=== PATIENT | female | born 1960 | race African-American/Black ===

== ENCOUNTER 2016-08-05 12:34 | Inpatient (IN) | payer OTHER ==
[~2016-08-05] VITALS: Ht 170.2 cm; Wt 63.5 kg
--- NOTE | 2016-08-05 12:34 | NUR ---
PATIENT PRESENTS TO ED WITH SYNCOPAL EPISODE . PT STATES SHE WAS TALKING TO A NEIGHBOR AFTER A MORNING WALK AND PASSED OUT ON A CHAIR . DENIES N/V/D; SKIN IS PINK/WARM/DRY; AAOX4 WITH EVEN AND AMBULATES WITH A CANE; LUNGS CLEAR BL; HR EVEN AND REGULAR; PT DENIES ANY FEVER, CP, SOB, OR COUGH AT THIS TIME; PATIENT STATES PAIN OF 0/10 AT THIS TIME; VSS; PATIENT POSITIONED FOR COMFORT; HOB ELEVATED; BEDRAILS UP X2; BED DOWN. ER MD MADE AWARE OF PT STATUS.
[2016-08-05] MEDS ORDERED: NACL 0.9% 1,000 ML IV ONE (12:40)
[2016-08-05 12:43] VITALS: BP 108/73
--- NOTE | 2016-08-05 12:44 | NUR ---
LAB AT BEDSIDE COLLECTING SAMPLE
[2016-08-05 13:10] LABS: HEMOGLOBIN 11.7 g/dL (12.0-16.0); MEAN CORPUSCULAR HEMOGLOBIN 33 pg (27-31); MEAN CORPUSCULAR HGB CONC 33 g/dL (33-37); MEAN CORPUSCULAR VOLUME 100 fL (80-94); PLATELET COUNT (AUTO) 275 K/uL (140-450); RED CELL DISTRIBUTION WIDTH 15.9 % (11.6-13.7); WHITE BLOOD COUNT (AUTO) 8.3 K/uL (4.8-10.8)
--- NOTE | 2016-08-05 13:10 | NUR ---
PT TRANSFERRED TO CT ON [facility]
[2016-08-05 13:17] LABS: ALBUMIN 3.4 g/dL (3.4-5.0); ANION GAP 15.7 (8-16); CALCIUM 9.7 mg/dL (8.5-10.1); CARBON DIOXIDE 25.2 mmol/L (21-32); TOTAL BILIRUBIN 0.3 mg/dL (0.0-1.0); TOTAL PROTEIN, SERUM 7.2 g/dL (6.4-8.2)
[2016-08-05 13:21] LABS: INR 1.1 (0.8-1.2); PARTIAL THROMBOPLASTIN TIME 20.8 secs (22-35.6); PROTHROMBIN TIME 10.3 secs (10.8-13.4)
[2016-08-05 13:23] LABS: POTASSIUM 2.9 mmol/L (3.5-5.1)
[2016-08-05 13:28] LABS: EOSINOPHILS % (MANUAL) 2 % (0-4); LYMPHOCYTES % (MANUAL) 37 % (20-46); MONOCYTES % (MANUAL) 7 % (5-12); NEUTROPHILS % (MANUAL) 54 (43-65)
--- NOTE | 2016-08-05 13:28 | NUR ---
RETURNED FROM CT VIA IVETTE, A/O X4
[2016-08-05] MEDS ORDERED: POTASSIUM CHLORIDE 10 MEQ TABER PO ONE (13:35)
[2016-08-05] MEDS ORDERED: GABA300C PO (13:48)
--- NOTE | 2016-08-05 13:48 | NUR ---
SPOKE WITH PT ABOUT BEING ADMITTED FOR OBSERVATION. PT CHANGED HER MIND AND WOULD LIKE TO GO HOME. DR. PARTIDA NOTIFIED
[2016-08-05] MEDS ORDERED: ASPIRIN 325 MG TAB PO ONE (14:15)
[2016-08-05 14:28] LABS: APPEARANCE,URINE CLEAR (CLEAR); BILIRUBIN,URINE NEGATIVE (NEGATIVE); BLOOD, URINE NEGATIVE (NEGATIVE); COLOR,URINE YELLOW (YELLOW); LEUKOCYTE ESTERASE ,URINE NEGATIVE (NEGATIVE); NITRITE, URINE NEGATIVE (NEGATIVE); PROTEIN,URINE NEGATIVE (NEGATIVE); UGLUCOSE NEGATIVE (NEGATIVE); UROBILINOGEN,URINE 0.2 EU/dL (0.2 - 1)
--- NOTE | 2016-08-05 14:29 | NUR ---
NO SEIZURE ACTIVITY NOTED, REMAINS A/O X4 WITH FULL CLEAR SPEECH. CONTINUES TO DENIE AQUINO, NO N/V, NO DIZZINESS
[2016-08-05] MEDS ORDERED: ONDANSETRON 4 MG/2 ML VIAL IVP PRN (14:30)
[2016-08-05] MEDS ORDERED: MORPHINE SULFATE 4 MG/ML SYR IVP PRN (14:30)
[2016-08-05] MEDS ORDERED: HYDROcodone/APAP 5/325 MG 1 TAB TAB PO PRN (14:30)
[2016-08-05 14:38] LABS: BACTERIA,URINE FEW /HPF (None Seen); MUCUS,URINE 1+ /LPF (None Seen); RBC,URINE 0-3 /HPF (0-5); WBC,URINE 0-3 /HPF (0-5)
[2016-08-05 14:44] LABS: AMPHETAMINE, URINE NEG. ng/ml (NEG <=1000); BARBITURATE, URINE NEG. ng/ml (NEG <=200); BENZODIAZEPINE, URINE NEG. ng/mL (NEG <=200); CANNABINOID, URINE NEG. ng/mL (NEG <=50); COCAINE, URINE NEG. ng/mL (NEG <=300); OPIATE, URINE NEG. ng/mL (NEG <=2000); PHENCYCLIDINE SCREEN,URINE NEG. ng/mL (NEG <=25)
--- NOTE | 2016-08-05 15:44 | NUR ---
Patient will be admitted to care of DR BRUNNER. Admited to TELE. Will go to room 123B. Belongings list completed. Report to JU HILTON.
--- NOTE | 2016-08-05 16:00 | NUR ---
PT CAME TO UNIT WITH 3 ER NURSES. PT IS ALERT AWAKE AND ORIENTED. PT WENT TO BATHROOM WITH CANE, TOLERATED WELL. PT HAS L AC 20 G SL FOR NOW, WILL HANG IVF ORDERED. VS WNL. CALL LIGHT WITHIN REACH. PT DENIES PAIN OR DIZZINESS AT THIS TIME. SKIN INTACT. PROVIDED WATER. WILL CONTINUE TO MONITOR.
[2016-08-05] MEDS: NACL 0.9% 1,000 ML IV SCH (16:30)
[2016-08-05 16:52] VITALS: BP 97/65
[2016-08-05] MEDS ORDERED: GABAPENTIN 300 MG CAP PO SCH (17:00)
--- NOTE | 2016-08-05 17:50 | NUR ---
PT SAT UP IN BED FOR DINNER. TOLERATED WELL. NO COMPLAINTS. CALL LIGHT WITHIN REACH. WILL CONTINUE TO MONITOR.
--- NOTE | 2016-08-05 19:23 | NUR ---
ENDORSED CARE OF PT TO CHIEF OF HARBOR PATROL NURSE. PT IN STABLE CONDITION.
--- NOTE | 2016-08-05 19:30 | NUR ---
RECEIVED REPORT FROM ABDULAZIZ HILTON AT BEDSIDE. PT IS ALERT AWAKE ORIENTED X4. INITIAL ASSESSMENT DONE. NO S/S OF RESPIRATORY DISTRESS OR SOB NOTED. NO C/O PAIN OR ANY DISCOMFORT AT THIS TIME. PLAN OF CARE REVIEWED TO PT AND FAMILY AT BEDSIDE AND VERBALIZED UNDERSTANDING. CALL LIGHT WITHIN REACH. WILL CONTINUE TO MONITOR.
[2016-08-05 20:00] VITALS: BP 107/77
[2016-08-05] MEDS: GABAPENTIN 300 MG CAP PO SCH (20:20)
[2016-08-05] MEDS: LORazepam 2 MG/ML VIAL IVP PRN (21:04)
[2016-08-06] VITALS: BP 105/73
--- NOTE | 2016-08-06 00:10 | NUR ---
PT IS SLEEPING RIGHT NOW BUT EASILY AROUSABLE. NO S/S OF ANY DISCOMFORT AT THIS TIME. ALL NEEDS ARE ATTENDED. CALL LIGHT WITHIN REACH. WILL CONTINUE TO MONITOR.
[2016-08-06] MEDS: NACL 0.9% 1,000 ML IV SCH (00:23)
[2016-08-06] MEDS: LORazepam 2 MG/ML VIAL IVP PRN (02:40)
[2016-08-06 04:00] VITALS: BP 102/71
--- NOTE | 2016-08-06 05:30 | NUR ---
AM CARE RENDERED. BED LINEN CHANGED. INSTRUCTED PT TO REPOSITION. KEPT CLEAN AND DRY. CALL LIGHT WITHIN REACH. WILL CONTINUE TO MONITOR.
[2016-08-06 05:38] LABS: BASOPHILS # (AUTO) 0.3 K/uL (0.00-0.22); BASOPHILS % (AUTO) 4.3 % (0.0-2.0); EOSINOPHILS # (AUTO) 0.3 K/uL (0-0.4); EOSINOPHILS % (AUTO) 5.3 % (0.0-4.0); HEMATOCRIT 29.8 % (36-48); HEMOGLOBIN 9.6 g/dL (12.0-16.0); LYMPHOCYTES # (AUTO) 2.3 K/uL (2.5-16.5); LYMPHOCYTES % (AUTO) 36.8 % (20.5-51.1); MEAN CORPUSCULAR HEMOGLOBIN 32 pg (27-31); MEAN CORPUSCULAR HGB CONC 32 g/dL (33-37); MEAN CORPUSCULAR VOLUME 99 fL (80-94); MONOCYTES # (AUTO) 0.2 K/uL (0.8-1.0); MONOCYTES % (AUTO) 3.8 % (1.7-9.3); NEUTROPHILS # (AUTO) 3.2 K/uL (1.8-7.7); NEUTROPHILS % (AUTO) 49.8 % (42.2-75.2); PLATELET COUNT (AUTO) 210 K/uL (140-450); RED BLOOD CELL COUNT(AUTO) 3.01 MIL/uL (4.20-5.40); RED CELL DISTRIBUTION WIDTH 15.4 % (11.6-13.7); WHITE BLOOD COUNT (AUTO) 6.3 K/uL (4.8-10.8)
[2016-08-06 06:15] LABS: CALCIUM 8.2 mg/dL (8.5-10.1); CARBON DIOXIDE 23.9 mmol/L (21-32); CREATININE 0.8 mg/dL (0.6-1.3); POTASSIUM 3.9 mmol/L (3.5-5.1)
[2016-08-06 06:18] LABS: MAGNESIUM 1.1 mg/dL (1.8-2.4)
--- NOTE | 2016-08-06 07:22 | NUR ---
PT HAS NO S/S OF ANY DISCOMFORT. PLAN OF CARE ENDORSED TO ROCKY RN AT BEDSIDE FOR CONTINUITY OF CARE.
--- NOTE | 2016-08-06 07:23 | NUR ---
PT ALERT AND ORIENTED X4, BREATHING EVENLY AND UNLABORED, NO SIGNS OF ACUTE DISTRESS. SKIN IS WARM AND DRY. NO SIGNS OF ANY BOWEL/BLADDER DISCOMFORT. DENIES OF ANY PAIN OR DISCOMFORT. ALL NEEDS ATTENDED, SAFETY PRECAUTIONS MAINTAINED. CALL LIGHT WITHIN REACH.
[2016-08-06 08:00] VITALS: BP 124/84
--- NOTE | 2016-08-06 08:53 | NUR ---
PATIENT HAS BEEN SCREENED AND CATEGORIZED MODERATE NUTRITION RISK. PATIENT WILL BE SEEN WITHIN 3-5 DAYS OF ADMISSION. 08/08/16-08/10/[address]
--- NOTE | 2016-08-06 08:58 | NUR ---
FAXED INITIAL REVIEW TO [facility] [phone] PHONE DONNA [phone]
[2016-08-06] MEDS ORDERED: ENOXAPARIN 40 MG/0.4 ML SYR SUBQ SCH (09:00)
[2016-08-06] MEDS ORDERED: amLODIPine 5 MG TAB PO SCH (09:00)
[2016-08-06] MEDS: GABAPENTIN 300 MG CAP PO SCH (09:10)
--- NOTE | 2016-08-06 09:48 | NUR ---
NEW ORDERS RECEIVED FROM DR. BRUNNER, NOTED AND CARRIED OUT.
[2016-08-06] MEDS ORDERED: MAG SULF 2000 MG/WATER PREMIX 50 ML IV SCH (10:00)
--- NOTE | 2016-08-06 11:45 | NUR ---
PT REQUESTED TO SIGN AMA, RISKS AND BENEFITS EXPLAINED, CHARGE NURSE AND LINUX ADMINISTRATOR AWARE. DR. BRUNNER AWARE.
--- NOTE | 2016-08-06 11:57 | NUR ---
IV LINE AND TELE LEADS REMOVED. WRIST BANDS ALSO REMOVED.
[2016-08-06 12:00] VITALS: BP 105/80
--- NOTE | 2016-08-06 12:05 | NUR ---
PT WENT OFF UNIT AND SIGNED AMA. PERSONAL BELONGINGS WITH PT UPON LEAVING UNIT.
== END 2016-08-06 12:05 | disposition left against medical advice (07) | DRG 52 ==
LOC: MED 12:34 → MTU 14:29
PROVIDERS: ADMIT Internal Medicine Pulmonary Disease; ATTEND Internal Medicine Pulmonary Disease
DX: G93.41 Metabolic encephalopathy (principal); I95.9 Hypotension, unspecified; R56.9 Unspecified convulsions; E87.6 Hypokalemia; G62.9 Polyneuropathy, unspecified; I10 Essential (primary) hypertension; R32 Unspecified urinary incontinence; Z53.21 Procedure and treatment not carried out due to patient leaving prior to being seen by health care provider; F17.210 Nicotine dependence, cigarettes, uncomplicated; Z90.710 Acquired absence of both cervix and uterus; Z90.49 Acquired absence of other specified parts of digestive tract; Z86.73 Personal history of transient ischemic attack (TIA), and cerebral infarction without residual deficits
CPT/HCPCS: 36415; 70450; 71010; 80048; 80053; 80305; 81001; 83735; 84100; 84484; 85025; 85610; 85730; 87081; 93005; 95816; 96360; 96361; 99285; J1650; J2060; J3475; J7030

== ENCOUNTER 2017-03-16 20:05 | Emergency (ER) | payer OTHER ==
[~2017-03-16] VITALS: Ht 170.2 cm; Wt 68.0 kg
[~2017-03-16 20:05] MED LIST: GABA300C PO
[2017-03-16 20:15] VITALS: BP 125/71
[2017-03-16 20:18] VITALS: BP 125/71
--- NOTE | 2017-03-16 20:18 | NUR ---
TO LOBBY.VIA W/C, A/W BED, LASHAWN DELEON NOTED
--- NOTE | 2017-03-16 22:10 | NUR ---
PT TAKEN TO OF
--- NOTE | 2017-03-16 22:14 | NUR ---
PATIENT PRESENTS TO ED WITH LEFT LEG, ANKLE , FOOT PAIN AND SWELLING FOR 2 WEEKS , NO TRAUMA NOR INJURY PT DENIES N/V/D; SKIN IS PINK/WARM/DRY; AAOX4 WITH EVEN AND STEADY GAIT; LUNGS CLEAR BL; HR EVEN AND REGULAR; PT DENIES ANY FEVER, CP, SOB, OR COUGH AT THIS TIME; PATIENT STATES PAIN OF 7/10 AT THIS TIME; VSS; PATIENT POSITIONED FOR COMFORT; HOB ELEVATED; BEDRAILS UP X2; BED DOWN. ER MD MADE AWARE OF PT STATUS.
--- NOTE | 2017-03-16 23:35 | NUR ---
PT HAS STICHES ON THE BACK OF LEFT LEG THAT NEED TO BE REMOVED.
--- NOTE | 2017-03-16 23:42 | NUR ---
PT MOVED OT BED 2
--- NOTE | 2017-03-16 23:57 | NUR ---
PT MOVED BACK TO OF
--- NOTE | 2017-03-17 00:09 | NUR ---
Patient discharged with v/s stable. Written and verbal after care instructions given and explained. Patient verbalized understanding. Ambulatory with steady gait. All questions addressed prior to discharge. Advised to follow up with PMD. DISCHARGED BY DR SIERRA
== END 2017-03-17 00:09 | disposition home or self-care (01) ==
LOC: MED 20:05
DX: M79.662 Pain in left lower leg (principal); I10 Essential (primary) hypertension
CPT/HCPCS: 99283

== ENCOUNTER 2017-12-05 06:51 | Day surgery (SDC) | payer OTHER ==
[~2017-12-05] VITALS: Ht 170.2 cm; Wt 74.8 kg
[2017-12-05] MEDS ORDERED: MIDAZOLAM 2 MG/2 ML VIAL ONE ×2 (08:54)
[2017-12-05] MEDS ORDERED: fentaNYL 0.05 MG/ML VIAL ONE (08:54)
[2017-12-05] MEDS ORDERED: MIDAZOLAM 2 MG/2 ML VIAL IVP ONE (09:15)
== END 2017-12-05 10:10 | disposition home or self-care (01) ==
LOC: MDS 06:51 → MMU 06:52 → MDS 10:10
PROVIDERS: ATTEND Internal Medicine Gastroenterology
DX: K22.8 Other specified diseases of esophagus (principal); K31.89 Other diseases of stomach and duodenum; K44.9 Diaphragmatic hernia without obstruction or gangrene; I10 Essential (primary) hypertension; F17.210 Nicotine dependence, cigarettes, uncomplicated; E66.9 Obesity, unspecified; Z68.25 Body mass index [BMI] 25.0-25.9, adult; Z79.82 Long term (current) use of aspirin; Z79.899 Other long term (current) drug therapy; Z90.49 Acquired absence of other specified parts of digestive tract; Z90.710 Acquired absence of both cervix and uterus
CPT/HCPCS: 36415; 43239; 86677; 88305; 88313; J2250; J3010

== ENCOUNTER 2018-04-25 09:13 | Inpatient (IN) | payer OTHER ==
[~2018-04-25] VITALS: Ht 170.2 cm; Wt 73.0 kg
--- NOTE | 2018-04-25 09:13 | NUR ---
PT BIBA BLS TO BED 9
--- NOTE | 2018-04-25 09:29 | NUR ---
Patient being evaluated by physician at bedside.
--- NOTE | 2018-04-25 09:29 | NUR ---
PATIENT PRESENTS TO ED WITH brought in by ems from home pt c/o awoke with severe lower back pain ; denies recent injury/trauma DENIES N/V/D; SKIN IS PINK/WARM/DRY; AAOX4 WITH EVEN AND STEADY GAIT; LUNGS CLEAR BL; HR EVEN AND REGULAR; PT DENIES ANY FEVER, CP, SOB, OR COUGH AT THIS TIME; PATIENT STATES PAIN OF 10/10 AT THIS TIME; VSS; PATIENT POSITIONED FOR COMFORT; HOB ELEVATED; BEDRAILS UP X2; BED DOWN. ER MD MADE AWARE OF PT STATUS.
[2018-04-25] MEDS ORDERED: KETOROLAC 60 MG/2 ML VIAL IM ONE (09:35)
[2018-04-25] MEDS ORDERED: ONDANSETRON 4 MG ODT PO ONE (10:30)
[2018-04-25] MEDS ORDERED: MORPHINE SULFATE 4 MG/ML SYR IM ONE (10:30)
--- NOTE | 2018-04-25 10:42 | NUR ---
pt c/o 10/07 lower back pain; medicated as written----encouraged pt to use call light and not to get out of [facility] without assistance. will continue to observe for pain control
[2018-04-25] MEDS ORDERED: MORPHINE SULFATE 4 MG/ML SYR IVP ONE (11:40)
--- NOTE | 2018-04-25 12:07 | NUR ---
ATTEMPTED TO START IV MULTIPLE TIMES WITH NO SUCCESS--PT OKAY FOR IM
[2018-04-25] MEDS ORDERED: ACETAMINOPHEN 325 MG TAB PO PRN (13:30)
[2018-04-25] MEDS ORDERED: LORazepam 2 MG/ML VIAL IVP PRN (13:30)
--- NOTE | 2018-04-25 13:39 | NUR ---
PT TO CT SCAN VIA [facility]
--- NOTE | 2018-04-25 14:18 | NUR ---
Pt transferred to Med/Surg via [facility] ROOM 112-B REPORT GIVEN TO ANTHONY HILTON
--- NOTE | 2018-04-25 15:08 | NUR ---
PT REPORT RECIEVED FROM RAÚL RN, PT IN ROOM 112B, SITTING IN BED IN NAD, RESP EVEN UNLABORED, SKIN WARM DRY COLOR WNL, PT STATES LOWER BACK PAIN 7/10, DENIES PAIN RADIATION, DENIES NUMBNESS AND TINGLING, BILAT LOWER EXT WITH EQUALLY STRONG, PT ORIENTED TO ROOM AND UNIT, CALL MCCONNELL WITHIN REACH, MRSA SWAB DONE, SKIN INSPECTED, INTACT, POC REVIEWED, MORPHINE GIVEN IN ER FOR PAIN AT 1200, NOT DUE UNTIL 1600, OFFERED NORCO BUT DECLINED, PT WISHES TO WAIT UNTIL 1600 FOR MORPHINE, VISITOR AT BEDSIDE, WILL CONTINUE TO MONITOR.
[2018-04-25 15:53] VITALS: BP 108/69
[2018-04-25] MEDS: MORPHINE SULFATE 2 MG/ML SYR IVP PRN ×2 (16:15→21:32)
--- NOTE | 2018-04-25 18:02 | NUR ---
PT C/O BACK PAIN AGAIN, MEDICATED WITH NORCO, WILL CONTINUE TO MONITOR.
[2018-04-25] MEDS: GABAPENTIN 300 MG CAP PO SCH (18:19)
[2018-04-25] MEDS: HYDROcodone/APAP 5/325 MG 1 TAB TAB PO PRN (18:19)
[2018-04-25] MEDS: ONDANSETRON 4 MG/2 ML VIAL IVP PRN (18:25)
--- NOTE | 2018-04-25 19:25 | NUR ---
REPORT GIVEN TO DRIVER GUARD NURSE. PT IN BED. PT STATED THAT PAIN IS GETTING BETTER. PATIENT STATED THE NAUSEA IS LESS AFTER RECEIVING ZOFRAN.
--- NOTE | 2018-04-25 19:26 | NUR ---
RECEIVED PT FROM OANH RN PT IS AAOX4 AMBULATORY HL ON LEFT FA PATENT, PT VERBALIZED TO HAVE HAD LOWER BACK PAIN BUT MEDIC HAS BEEN GIVEN .
[2018-04-25 20:00] VITALS: BP 118/66
--- NOTE | 2018-04-25 22:00 | NUR ---
AFTER PAIN MEDICATION GIVEN PT IS SLEEPING WELL NOT DISTRESS NOTED
[2018-04-26] VITALS: BP 107/68
--- NOTE | 2018-04-26 01:00 | NUR ---
PT VOIDING WELL USING BSC NOT DISTRESS NOTED
[2018-04-26] MEDS: HYDROcodone/APAP 5/325 MG 1 TAB TAB PO PRN ×2 (03:10→16:26)
--- NOTE | 2018-04-26 04:00 | NUR ---
SPONGE BATH GIVEN LINEN CHANGED; NOT DISTRESS NOTED
--- NOTE | 2018-04-26 07:04 | NUR ---
PT WILL BE ENDORSED TO DAYSHIFT NURSER FOR CONINUITY OF CARE
[2018-04-26 07:05] LABS: ANION GAP 21.7 (8-16); CARBON DIOXIDE 22.4 mmol/L (21-32); POTASSIUM 5.1 mmol/L (3.5-5.1)
--- NOTE | 2018-04-26 07:30 | NUR ---
RECEIVED PT IN BED AAOX4. NO SOB NOTED. NO C/O PAIN AT THIS TIME. IV TO RT HAND PATENT AND INTACT. CHEST, DIMINISHED AIR ENTRY TO THE BASES, OTHERWISE CLEAR. ABDOMEN SOFT, BOWEL SOUNDS PRESENT. INSTRUCTED PT TO CALL FOR ASSISTANCE, CALL LIGHT WITHIN REACH, PT VERBALIZED UNDERSTANDING.
[2018-04-26 07:31] LABS: BASOPHILS % (AUTO) 0.3 % (0.0-2.0); EOSINOPHILS % (AUTO) 0.4 % (0.0-4.0); HEMATOCRIT 34.9 % (36-48); HEMOGLOBIN 11.2 g/dL (12.0-16.0); LYMPHOCYTES # (AUTO) 0.4 K/uL (2.5-16.5); LYMPHOCYTES % (AUTO) 11.4 % (20.5-51.1); MEAN CORPUSCULAR HEMOGLOBIN 32 pg (27-31); MEAN CORPUSCULAR HGB CONC 32 g/dL (33-37); MEAN CORPUSCULAR VOLUME 99.3 fL (80-94); MONOCYTES # (AUTO) 0.2 K/uL (0.8-1.0); MONOCYTES % (AUTO) 4.1 % (1.7-9.3); NEUTROPHILS # (AUTO) 3.1 K/uL (1.8-7.7); NEUTROPHILS % (AUTO) 83.8 % (42.2-75.2); PLATELET COUNT (AUTO) 178 K/uL (140-450); RED BLOOD CELL COUNT(AUTO) 3.51 MIL/uL (4.20-5.40); RED CELL DISTRIBUTION WIDTH 17.8 % (11.6-13.7); WHITE BLOOD COUNT (AUTO) 3.7 K/uL (4.8-10.8)
[2018-04-26 08:00] VITALS: BP 108/70
[2018-04-26] MEDS ORDERED: COMMUNICATION ORDER MC ONE (08:15)
--- NOTE | 2018-04-26 08:39 | NUR ---
PATIENT HAS BEEN SCREENED AND CATEGORIZED LOW NUTRITION RISK. PATIENT WILL BE SEEN WITHIN 7 DAYS OF ADMISSION. 05/02/[address]
[2018-04-26] MEDS ORDERED: ENOXAPARIN 40 MG/0.4 ML SYR SUBQ SCH (09:00)
[2018-04-26] MEDS: GABAPENTIN 300 MG CAP PO SCH ×2 (09:00→12:19)
[2018-04-26] MEDS: MORPHINE SULFATE 2 MG/ML SYR IVP PRN (09:02)
[2018-04-26] MEDS: ASPIRIN 81 MG TAB.CHEW PO SCH (09:07)
--- NOTE | 2018-04-26 09:16 | NUR ---
CM NOTE PER BYRON OF [facility] PH# [phone], THE PATIENT IS BEING SEEN BY DR. CJ PAN AND THE PATIENT IS SET UP TO SEE DR. PAN FOR OUTPATIENT FOLLOW UP ON MAY 02, 2018 3:30 PM AT THE CLINIC AT [address] [address]. I GAVE THE PATIENT A COPY OF HER OUTPATIENT FOLLOW UP SCHEDULE.
[2018-04-26] MEDS ORDERED: MAGNESIUM SULFATE IV SCH (09:30)
[2018-04-26] MEDS ORDERED: NACL 0.9% IV SCH (09:30)
--- NOTE | 2018-04-26 09:30 | NUR ---
PHYSICAL THERAPY ON GOING AT THE BEDSIDE.
[2018-04-26] MEDS: ONDANSETRON 4 MG/2 ML VIAL IVP PRN (10:32)
[2018-04-26 12:00] VITALS: BP 113/70
--- NOTE | 2018-04-26 13:05 | NUR ---
PT RESTING. NO SOB NOTED. NO SIGNS OF PAIN AT THIS TIME.
[2018-04-26 15:52] VITALS: BP 117/75
--- NOTE | 2018-04-26 16:10 | NUR ---
PT SEEN BY DR. BELCHER AT THE BEDSIDE. NEW ORDERS GIVEN .
[2018-04-26] MEDS: NACL 0.9% 1,000 ML IV SCH ×2 (16:26→23:55)
--- NOTE | 2018-04-26 16:26 | NUR ---
IVF OF NS AT 125 MLS/HOUR STARTED.
--- NOTE | 2018-04-26 19:00 | NUR ---
PT RESTING, NO SOB NOTED. NO COMPLAINTS MADE. WILL ENDORSE TO NEXT SHIFT NURSE FOR CONTINUITY OF CARE.
--- NOTE | 2018-04-26 19:01 | NUR ---
RECEIVED REPORT FROM DAYSHIFT NURSE AT BEDSIDE FOR CONTINUITY OF CARE. PT IV NOTED R HAND 22G NS 125ML/HR. NO SOB NO S/S OF DISTRESS ON 2L NC O2. BED LOWERED CALL LIGHT WITHIN REACH WILL CONTINUE TO MONITOR.
[2018-04-26] MEDS: MAGNESIUM OXIDE 400 MG TAB PO SCH (21:03)
[2018-04-27] VITALS: BP 112/69
--- NOTE | 2018-04-27 02:00 | NUR ---
END IV INFUSION OF NS AT 125ML.HR. WILL CONTINUE TO MONITOR.
--- NOTE | 2018-04-27 02:05 | NUR ---
NEW IV FLUIDS STARTED NS AT 125 ML/ BAG 1000ML. WILL CONTINUE TO MONITOR.
[2018-04-27] MEDS: NACL 0.9% 1,000 ML IV SCH ×4 (06:42→23:43)
--- NOTE | 2018-04-27 07:20 | NUR ---
RECEIVED BEDSIDE REPORT FROM CARDIOLOGY TECH NURSE. PATIENT IS AWAKE, ALERT AND ORIENTEDX4. NO SIGNS OF DISTRESS ON RA. SKIN IS INTACT. FALL RISK PROTOCOL. PATIENT HAS WEAKNESS. BEDSIDE COMMODE AVAILABLE. IV ON R WRIST 22G INFUSING NS 125. CLEAN, DRY AND INTACT. PATIENT IS INCONTINENT AT THIS TIME. BED IN LOW POSITION. CALL LIGHT WITHIN REACH. WILL CONTINUE TO MONITOR THE PATIENT.
[2018-04-27 08:00] VITALS: BP 81/53
[2018-04-27] MEDS: MAGNESIUM OXIDE 400 MG TAB PO SCH (09:00)
[2018-04-27 09:05] LABS: ANION GAP 16.8 (8-16); CARBON DIOXIDE 21.7 mmol/L (21-32); POTASSIUM 4.5 mmol/L (3.5-5.1)
[2018-04-27] MEDS ORDERED: NACL 0.9% 1,000 ML IV SCH (09:25)
--- NOTE | 2018-04-27 09:31 | NUR ---
STOPPED NS BAG. STARTED NEW NS BAG 1L BOLUS FOR LOW B/P
[2018-04-27 10:00] VITALS: BP 100/67
[2018-04-27 10:05] LABS: BASOPHILS % (AUTO) 0.3 % (0.0-2.0); EOSINOPHILS % (AUTO) 0.1 % (0.0-4.0); HEMATOCRIT 34.5 % (36-48); HEMOGLOBIN 10.5 g/dL (12.0-16.0); LYMPHOCYTES # (AUTO) 0.3 K/uL (2.5-16.5); MEAN CORPUSCULAR HEMOGLOBIN 31 pg (27-31); MEAN CORPUSCULAR HGB CONC 30 g/dL (33-37); MEAN CORPUSCULAR VOLUME 101.1 fL (80-94); MONOCYTES # (AUTO) 0.4 K/uL (0.8-1.0); MONOCYTES % (AUTO) 11.9 % (1.7-9.3); NEUTROPHILS # (AUTO) 2.6 K/uL (1.8-7.7); NEUTROPHILS % (AUTO) 77.7 % (42.2-75.2); PLATELET COUNT (AUTO) 124 K/uL (140-450); RED BLOOD CELL COUNT(AUTO) 3.41 MIL/uL (4.20-5.40); RED CELL DISTRIBUTION WIDTH 18.4 % (11.6-13.7); WHITE BLOOD COUNT (AUTO) 3.4 K/uL (4.8-10.8)
[2018-04-27] MEDS: ASPIRIN 81 MG TAB.CHEW PO SCH (10:21)
--- NOTE | 2018-04-27 10:21 | NUR ---
CM NOTE PER CHARGE NURSE ABEBA, NO DISCHARGE TODAY BECAUSE OF LOW BP. RECEIVED ORDER FOR HH FOR PT. FAXED ORDER FOR HH AND PT EVAL NOTES TO [facility]. PER [facility] EBER THOMPSON PH# [phone] SEND INQUIRY TO [facility]. FAXED FACESHEET, ORDER FOR HH, H&P, PT EVAL NOTES AND LIST OF MEDS TO [facility]. PER NORRIS OF [facility] PH# [phone], THEY ARE ACCEPTING THE PATIENT AND WILL HAVE A NURSE AVAILABLE TO SEE THE PATIENT POST DISCHARGE. Addendum: 04/27/18 at 1038 by Kirsten Lowery CM JOVANNY HILTON AWARE. Addendum: 04/27/18 at 1119 by Kirsten Lowery CM I CONFIRMED PATIENT'S ADDRESS WITH HER.
--- NOTE | 2018-04-27 10:30 | NUR ---
DR BELCHER AWARE OF PATIENT HAVING SOME CONFUSION. PATIENT CALLED HER AUNT ASKING FOR HER DADS NUMBER AND HER DAD HAS PASSED A LONG TIME AGO. PATIENT HAS ON AND OFF CONFUSION. DR BELCHER SAID HE WILL CALL AUNT AND COMMUNICATE W HER ABOUT HER CONCERNS.
--- NOTE | 2018-04-27 12:00 | NUR ---
PATIENT SITTING IN BED. NO SIGNS OF DISTRESS. PATIENT HAD LARGE BM, SENT IT TO THE LAB FOR CDIFF. CLEANSED PATIENT AND PLACED HER ON C. DIFF PRECAUTIONS. WILL CONTINUE TO MONITOR
--- NOTE | 2018-04-27 14:00 | NUR ---
PATIENT CONTINUES TO HAVE ON AND OFF CONFUSION. SHE WAS ASKING TO BE TURNED TO SEE HER COUSIN. COUSIN IS NOT PRESENT AT THIS TIME. SHE ALSO STATES A PAINTER AND BODY MECHANIC APPRENTICE TOLD HER NOT TO EAT 3 MEALS. NO PAINTER AND BODY MECHANIC APPRENTICE WAS PRESENT TO TELL HER TO SKIP MEALS. REORIENTED PATIENT. TOLD HER IT IS IMPORTANT TO TAKE MEALS, SHE KNOWS SHES AT A HOSPITAL BUT TOLD HER SHE DIDNT HAVE ANY VISITORS. PATIENT SPILLED WATER ALL OVER HER TABLE. CLEANED IT UP. WILL CONTINUE TO MONITOR THE PATIENT.
--- NOTE | 2018-04-27 15:50 | NUR ---
ADMINISTERED NEW IVF NS AT 125. PATIENT TOLERATING WELL. WILL CONTINUE TO MONITOR THE PATIENT. PATIENT CONFUSING CELLPHONE DIRECTOR FUNERAL PLUG FOR OXYGEN CONNECTION.
[2018-04-27 16:00] VITALS: BP 102/63
--- NOTE | 2018-04-27 17:09 | NUR ---
PATIENT IN NO SIGNS OF DISTRESS. WILL CONTINUE TO MONITOR THE PATIENT. BED IN LOW POSITION. CALL LIGHT WITHIN REACH.
--- NOTE | 2018-04-27 18:00 | NUR ---
PATIENT IS CONFUSED. SHE IS TALKING ABOUT GOING TO HER ROOM. TOLD HER SHE IS IN HER ROOM. SHE SAID NO THIS ISNT MY ROOM. WILL CONTINUE TO REORIENT PATIENT.
--- NOTE | 2018-04-27 19:00 | NUR ---
gave bedside report to date night caregiver nurse. patient endorsed in stable condition.
--- NOTE | 2018-04-27 19:30 | NUR ---
RECEIVED REPORT FROM DAY SHIFT NURSE FOR CONTINUITY OF CARE. PATIENT IS AWAKE, ALERT, RESPIRATION EVEN UNLABORED ON 3L OF O2 VIA NC. NO DISTRESS NOTED. SKIN IS WARM AND DRY. IV PATENT AND INTACT. PLAN OF CARE WAS DISCUSSED. ALL SAFETY MEASURE IN PLACE. BED IS AT LOW POSITION. BED ALARM ON. CALL LIGHT WITHIN
--- NOTE | 2018-04-27 20:00 | NUR ---
PATIENT VITALS STABLE. INITIAL ASSESSMENT DONE. NO DISTRESS NOTED. WILL CONTINUE TO MONITOR.
--- NOTE | 2018-04-27 22:15 | NUR ---
PATIENT HAD AN EPISODE OF DIARRHEA. PROVIDED GOOD PERICARE. WILL CONTINUE TO MONITOR.
[2018-04-28] VITALS: BP 114/71
--- NOTE | 2018-04-28 01:00 | NUR ---
RECEIVED CRITICAL LAB VALUE FOR POSITIVE C-DIFF. NOTIFIED DR. ALBERTS. ORDERED FLAGYL 500MG IV Q8H. CONTACT PRECAUTION IN PLACE. WILL CONTINUE TO MONITOR.
--- NOTE | 2018-04-28 02:00 | NUR ---
PATIENT HAD ANOTHER EPISODE OF DIARRHEA. PROVIDED GOOD PERICARE. WILL CONTINUE TO MONITOR.
--- NOTE | 2018-04-28 03:30 | NUR ---
PATIENT SLEEPING COMFORTABLY RESPIRATION EVEN UNLABORED ON 3L OF O2 VIA NC. NO DISTRESS NOTED. WILL CONTINUE TO MONITOR.
[2018-04-28] MEDS: metroNIDAZOLE 500 MG/NS PREMIX 100 ML IV SCH ×3 (04:56→20:43)
--- NOTE | 2018-04-28 05:00 | NUR ---
ADMINISTERED FIRST DOSE OF IV FLAGYL. PATIENT TOLERATED WELL. NO ASE NOTED. WILL CONTINUE TO MONITOR.
[2018-04-28] MEDS: NACL 0.9% 1,000 ML IV SCH ×4 (06:45→20:43)
[2018-04-28 06:51] LABS: ANION GAP 12.6 (8-16); CARBON DIOXIDE 25.1 mmol/L (21-32); CREATININE 1.4 mg/dL (0.6-1.3); POTASSIUM 3.7 mmol/L (3.5-5.1)
--- NOTE | 2018-04-28 07:29 | NUR ---
ENDORSED PATIENT TO DAY SHIFT NURSE FOR CONTINUITY OF CARE. PATIENT IS STABLE AT THIS TIME.
--- NOTE | 2018-04-28 07:30 | NUR ---
RECEIVED REPORT FROM TERMITE CONTROL TECHNICIAN NURSE. PATIENT SITTING DOWN IN BED WATCHING TV. NO DISTRESS NOTED. DENIES ANY PAIN AT THIS TIME. ASSISTED PATIENT TO BSC AND BACK TO BED. RESPIRATIONS EVEN, UNLABORED, ON O2 3L/MIN VIA NC. AAOX4, CALM, COOPERATIVE, SKIN COLOR APPROPRIATE TO ETHNICITY, WARM TO TOUCH. SKIN INTACT. IV SITE INTACT, PATENT, AND INFUSING IVF PER MD ORDERS. ABDOMEN SOFT. REVIEWED PLAN OF CARE WITH PATIENT. PATIENT VERBALIZED UNDERSTANDING. SAFETY MEASURES IN PLACE, CALL LIGHT WITHIN REACH. WILL CONTINUE TO MONITOR.
[2018-04-28 08:00] VITALS: BP 111/73
[2018-04-28] MEDS: ASPIRIN 81 MG TAB.CHEW PO SCH (09:05)
[2018-04-28] MEDS ORDERED: PANT40EC PO (09:18)
[2018-04-28] MEDS ORDERED: LYR75 PO (09:18)
--- NOTE | 2018-04-28 10:30 | NUR ---
PATIENT SITTING IN BED. IV SITE INFILTRATED. NEW IV LINE STARTED ON LEFT WRIST #24. PATIENT TOLERATED PROCEDURE WELL. WILL CONTINUE TO MONITOR.
--- NOTE | 2018-04-28 13:07 | NUR ---
PATIENT SITTING IN BED COMFORTABLY. NO DISTRESS NOTED. ON AND OFF CONFUSION. SCHEDULED MEDICATIONS DUE GIVEN. WILL CONTINUE TO MONITOR.
[2018-04-28 16:00] VITALS: BP 124/90
--- NOTE | 2018-04-28 19:30 | NUR ---
GAVE REPORT TO TANK FARM OPERATOR NURSE FOR CONTINUITY OF CARE. PATIENT IN STABLE CONDITION.
--- NOTE | 2018-04-28 19:30 | NUR ---
RECEIVED REPORT FROM DAY SHIFT NURSE FOR CONTINUITY OF CARE. PATIENT IS AWAKE, ALERT, RESPIRATION EVEN UNLABORED ON 3L OF O2 VIA NC. NO DISTRESS NOTED. SKIN IS WARM AND DRY. IV PATENT AND INTACT. PATIENT HAS GENERALIZE WEAKNESS. BEDSIDE COMMODE AVAILABLE WITHIN REACH. PLAN OF CARE WAS DISCUSSED. ALL SAFETY MEASURE IN PLACE. BED IS AT LOW POSITION. BED ALARM ON. CALL LIGHT WITHIN
--- NOTE | 2018-04-28 20:30 | NUR ---
INITIAL ASSESSMENT DONE. VITALS STABLE. DENIES PAIN. BED ALARM ON. CALL LIGHT WITHIN REACH. BED IS AT LOW POSITION. WILL CONTINUE TO MONITOR.
--- NOTE | 2018-04-28 21:05 | NUR ---
MEDS WERE GIVEN PER ORDER. NO ASE NOTED. WILL CONTINUE TO MONITOR.
--- NOTE | 2018-04-28 22:20 | NUR ---
PATIENT KEPT GETTING UP FROM THE BED. INSTRUCTED TO USE CALL LIGHT FOR ASSIST. PATIENT ABLE TO VERBALIZE UNDERSTANDING. BED ALARM ON. WILL CONTINUE TO MONITOR.
[2018-04-29] VITALS: BP 126/83
--- NOTE | 2018-04-29 00:40 | NUR ---
PATIENT IS ANXIOUS AND AGITATED KEPT GETTING UP WITHOUT ASSIST. NOT FOLLOWING INSTRUCTIONS. PRN ATIVAN ADMINISTERED. WILL CONTINUE TO MONITOR.
--- NOTE | 2018-04-29 01:40 | NUR ---
RECHECKED PATIENT. PATIENT SLEEPING RESPIRATION EVEN UNLABORED ON 3L O2 VIA NC. NO DISTRESS NOTED. CALL LIGHT WITHIN REACH. WILL CONTINUE TO MONITOR.
--- NOTE | 2018-04-29 02:45 | NUR ---
PATIENT HAD AN EPISODE OF DIARRHEA. CLEANED AND PROVIDED WITH GOOD PERICARE. WILL CONTINUE TO MONITOR.
[2018-04-29] MEDS: NACL 0.9% 1,000 ML IV SCH ×4 (03:47→21:49)
--- NOTE | 2018-04-29 04:00 | NUR ---
PATIENT VOMITED. PRN ZOFRAN ADMINISTERED. WILL CONTINUE TO MONITOR.
[2018-04-29] MEDS: ONDANSETRON 4 MG/2 ML VIAL IVP PRN (04:15)
--- NOTE | 2018-04-29 04:35 | NUR ---
RECHECKED PATIENT. NO VOMIT NOTED. PRN ZOFRAN EFFECTIVE. WILL CONTINUE TO MONITOR.
--- NOTE | 2018-04-29 05:00 | NUR ---
PATIENT IV INFILTRATED. INSERTED A NEW IV LINE. NO ACTIVE BLEEDING SEEN. IV CANNULA INTACT. WILL CONTINUE TO MONITOR.
[2018-04-29] MEDS: metroNIDAZOLE 500 MG/NS PREMIX 100 ML IV SCH ×3 (05:09→21:44)
--- NOTE | 2018-04-29 07:18 | NUR ---
RECEIVED REPORT FROM FILLING MIXER NURSE FOR CONTINUITY OF CARE. PATIENT IS AWAKE, ALERT, RESPIRATIONS EVEN AND UNLABORED ON ROOM AIR. NO DISTRESS NOTED. SKIN IS WARM AND DRY. IV PATENT AND INTACT. PATIENT HAS GENERALIZED WEAKNESS. BEDSIDE COMMODE AVAILABLE WITHIN REACH. PLAN OF CARE WAS DISCUSSED. ALL SAFETY MEASURE IN PLACE. BED IS AT LOW POSITION. BED ALARM ON. CALL LIGHT WITHIN REACH.
--- NOTE | 2018-04-29 07:26 | NUR ---
ENDORSED PATIENT TO DAY SHIFT NURSE FOR CONTINUITY OF CARE. PATIENT STABLE AT THIS TIME
[2018-04-29 08:00] VITALS: BP 135/93
--- NOTE | 2018-04-29 09:34 | NUR ---
ADMINISTERED MORNING MEDS TO PT. PT TOLERATED WELL. PT IS VERY CONFUSED. STOOL SEEMS VERY DARK AND TAR-LIKE. DR CALLED TO NOTIFY OF FINDINGS. PT STABLE AT THIS TIME. WILL CONTINUE TO ROUND FREQUENTLY ON PT. BED IN LOW POSITION, CALL LIGHT WITHIN REACH. BED ALARM ON.
[2018-04-29] MEDS: ASPIRIN 81 MG TAB.CHEW PO SCH (09:51)
[2018-04-29 10:25] LABS: BASOPHILS % (AUTO) 0.4 % (0.0-2.0); EOSINOPHILS % (AUTO) 1.7 % (0.0-4.0); HEMATOCRIT 30.6 % (36-48); HEMOGLOBIN 9.9 g/dL (12.0-16.0); LYMPHOCYTES # (AUTO) 0.3 K/uL (2.5-16.5); MEAN CORPUSCULAR HEMOGLOBIN 32 pg (27-31); MEAN CORPUSCULAR HGB CONC 32 g/dL (33-37); MEAN CORPUSCULAR VOLUME 97.5 fL (80-94); MONOCYTES # (AUTO) 0.4 K/uL (0.8-1.0); MONOCYTES % (AUTO) 14.7 % (1.7-9.3); NEUTROPHILS # (AUTO) 1.8 K/uL (1.8-7.7); NEUTROPHILS % (AUTO) 72.2 % (42.2-75.2); PLATELET COUNT (AUTO) 141 K/uL (140-450); RED BLOOD CELL COUNT(AUTO) 3.14 MIL/uL (4.20-5.40); RED CELL DISTRIBUTION WIDTH 17.9 % (11.6-13.7); WHITE BLOOD COUNT (AUTO) 2.5 K/uL (4.8-10.8)
[2018-04-29 10:59] LABS: CARBON DIOXIDE 22.6 mmol/L (21-32); POTASSIUM 3.6 mmol/L (3.5-5.1)
--- NOTE | 2018-04-29 11:38 | NUR ---
PATIENT SITTING IN BED COMFORTABLY. NO DISTRESS NOTED. ON AND OFF CONFUSION. SCHEDULED MEDICATIONS DUE GIVEN. WILL CONTINUE TO MONITOR. BED IN LOW POSITION, CALL LIGHT WITHIN REACH.
[2018-04-29] MEDS ORDERED: PANTOPRAZOLE 40 MG TABEC PO SCH (12:00)
--- NOTE | 2018-04-29 12:04 | NUR ---
SPOKE WITH AND NOTIFIED OF PT'S COFFEE GROUND EMISIS AND TARRY STOOLS. ALSO ALERTED OF PT'S DECLINING LOC PER PREVIOUS NURSES' OBSERVATION. ORDERED A CBC AND A DAILY ORAL PROTONIX 40MG. PT CONFUSED BUT STABLE AT THIS TIME.
--- NOTE | 2018-04-29 14:16 | NUR ---
PATIENT SLEEPING COMFORTABLY RESPIRATION EVEN UNLABORED ON RA. NO DISTRESS NOTED. WILL CONTINUE TO MONITOR. CALL LIGHT WITHIN REACH, BED IN LOW POSITION.
[2018-04-29 16:00] VITALS: BP 134/91
--- NOTE | 2018-04-29 16:14 | NUR ---
PT IS VERY CONFUSED AT THIS TIME. TRYING TO GET OUT OF BED. TEACHING REINFORCED FOR PT SAFETY. WILL ROUND FREQUENTLY ON PT. BED IN LOW POSITION, EVELYN LIGHT WITHIN REACH. BED ALARM ACTIVATED.
--- NOTE | 2018-04-29 17:46 | NUR ---
PT BOYFRIEND AT BEDSIDE. NAGA HARTMAN .
--- NOTE | 2018-04-29 17:54 | NUR ---
'S RUBY SOFTWARE DEVELOPER DR NOTIFIED OF PT'S DECLINING STATE. ALERTED OF PT ALOC AND O2 SATURATION BEING LOW IN 70'S AND 80'S. PER 'S ORDERS, DISCHARGE WAS CANCELLED AND ORDERED PT TO BE ON O2 4L VIA N/C TO KEEP O2 ABOVE 92%. ALSO ORDERED CHEST X-RAY.
--- NOTE | 2018-04-29 19:30 | NUR ---
RECEIVED FROM AM RN IN BED AWAKE AND ON ROOM AIR. CHECKED 02 SAT . 97 % AT THIS TIME. ENCOURAGED TO BREATH MORE . PT. BEEN TAKING OFF 02 BEING ADMINISTERED. ABLE TO VERBALIZE SIMPLE NEEDS. BED ALARM ON.
--- NOTE | 2018-04-29 19:44 | NUR ---
ENDORSED PT TO MULTI PUNCH OPERATOR FOR CONTINUITY OF CARE. PT IN STABLE CONDITION AT THIS TIME.
--- NOTE | 2018-04-29 19:56 | NUR ---
CHEST INHALATION THERAPIST IN HERE TO DO PROCEDURE.
--- NOTE | 2018-04-29 22:45 | NUR ---
PT. TRANSFERRED TO ROOM 24 FOR EASY ACCESS IF BED ALARM TURNS ON RT PT. TENDENCY TO GET OUT OF BED . KEEPS DANGLING HER LEGS OUT OF BED PER AM RN. PT. WITH GENERALIZED WEAKNESS AND CAN BARELY STAND UP ON HER OWN. NEEDS WILL BE ANTICIPATED AND WILL BE MET. TOTAL CARE RT NOTED PER AM RN CHANGE OF LOC. PT. ABLE TO VERBALIZE SIMPLE NEEDS BUT NOTED TO BE CONFUSED AT TIMES. PLACED ON 02 AT 2LP/NC . 02 SAT AT 97 %.
[2018-04-30] VITALS (7 sets, daily range): BP systolic 41–114; BP diastolic 29–71
--- NOTE | 2018-04-30 01:11 | NUR ---
PT. AT THIS TIME. AWAKE RT CNAS CHANGED HER BEDDINGS RT URINATED A LOT IN BED. KEPT DRY AND CLEAN. NO SOB. NO PAIN COMPLAINTS DONE. IVF SITE INTACT AND NO INFILTRATION . BED ALARM ON AT ALL TIMES.
--- NOTE | 2018-04-30 03:00 | NUR ---
PT. WAS CHECKED BY CNAS . PT. WAS CLEAN AND PER CNAS PT. WAS OK. PILLOW SUPPORT TO PRESSURE AREAS PROVIDED AND TURNED BY CNAS Q 2H.
[2018-04-30] MEDS: metroNIDAZOLE 500 MG/NS PREMIX 100 ML IV SCH (05:15)
--- NOTE | 2018-04-30 05:15 | NUR ---
RESPONDED TO RAPID RESPONSE, THEN TURNED INTO CODE BLUE, ASSISTED DR GLASGOW WITH INTUBATION, 7.5 ETT AT 24 CM AT THE TEETH, YELLOW COLOR CHANGE ON END TIDAL CO2 DETECTOR, TRANSFERRED TO ICU.
--- NOTE | 2018-04-30 05:17 | NUR ---
CODE BLUE CALLED RT FOUND WITH COFFEE GROUND COFFEE EMESIS. WILL CALL FAMILY MEMBER OF STATUS.
--- NOTE | 2018-04-30 05:35 | NUR ---
CALLED AND TALKED WITH ENEDINA HOSKINS /FAMILY/OTHER AND ORIENTED HER OF CODE BLUE GOING ON AT THIS TIME. INFORMED MD PEREZ ABOUT CODE . AWARE. PER AIDEE TO CALL HER AFTER WHATEVER RESULTS WILL BE.
--- NOTE | 2018-04-30 05:42 | NUR ---
PT. TRANSFERRED TO ICU FOR CONTINUITY OF CARE. INFORMED PACKAGING DESIGNER TO CALL MD ASSIGNED TO PT.
--- NOTE | 2018-04-30 05:45 | NUR ---
TRANS IN FROM TELE THIS 58 YEAR OLD FEMALE PATIENT, CODED IN TELE; ORALLY INTUBATED BY DR. GLASGOW; HOOKED TO IMMEDIATELY TO VENTILATOR BY THE RT; TO SUPERVISOR HARDBOARD, SCOPE SHOWS ON SINUS TACHY HR 125/MIN.
--- NOTE | 2018-04-30 05:48 | NUR ---
PATIENT IS UNRESPONSIVE;ORALLY INTUBATED AND VENTILATED, V/S 93/51 HR 152, ON SINUS TACHYCARDIA. NGT TO CONTINOUS SUCTION, DRAINING TO COFFEE GROUND GASTRIC OUTPUT. CLOSE OBSERVATION AND MONITORING DONE.
--- NOTE | 2018-04-30 05:51 | NUR ---
CALLED [facility] AGAIN. ANSWERING MACHINE ON. LEFT MESSAGE TO INFORM HER WE TRANSFERRED PT. TO ICU.
--- NOTE | 2018-04-30 06:02 | NUR ---
REPORT TO RN IN ICU GIVEN . INFORMED RN TO CALL MD PEREZ FOR ICU UPDATE ON PT. "OK"
--- NOTE | 2018-04-30 06:11 | NUR ---
PT CAME UNRESPONSIVE, DR. GLASGOW IS AT THE BEDSIDE, NGT INPLACE AND CONNECTED TO THE SUCTION. HR IS 140 TO 170S, ET TO VENT. [facility] OF 3, ER NURSES, ICU CHARGE NURSE AND MD AT THE BEDSIDE TRYING TO REVIVE THE PT. PULSE PRESENT AT THIS TIME. COFFEE GROUND EMESIS IS DRAINING FROM THE NGT.
--- NOTE | 2018-04-30 06:19 | NUR ---
PER YOBANI SUAREZ, TELE NURSE. SHE ALREADY CALLED DR. PEREZ AND THE FAMILY, SISTER ON HER WAY HERE.
--- NOTE | 2018-04-30 06:20 | NUR ---
B/P 104/54
--- NOTE | 2018-04-30 06:24 | NUR ---
TALKED WITH RN IN ICU AND REMINDED HER THAT SHE NEEDS TO CALL MD ASSIGNED TO PT. TO UP DATE PT.S STATUS WITH THEM. "OK"
--- NOTE | 2018-04-30 06:26 | NUR ---
PAGED [facility], PT'S B/P IS DROPPING
--- NOTE | 2018-04-30 06:29 | NUR ---
PT'S B/P IS , LEVOPHED STARTED BY YOBANI SUAREZ.
[2018-04-30] MEDS ORDERED: NOREPINEPHRINE 4 MG/4 ML VIAL IV ONE (06:32)
--- NOTE | 2018-04-30 06:35 | NUR ---
pt in icu after code blue placed on [facility]cape vent settings ac prvc rr 14 vt 450 peep 5 fio2 100% i-time 1.00 alarms on and functioning vent is plugged into red outlet, sxn pt brown secretions b\s diminished bilaterally, pt is orally intubated with 7.5 24cm at lip ambu bag at side of vent
--- NOTE | 2018-04-30 06:38 | NUR ---
PATIENT WENT INTO BRADYCARDIA HR AROUND 40-43/MIN, AND NO PULSE APPRECIATED; CPR STARTED, CALLED FOR CODE BLUE.
--- NOTE | 2018-04-30 06:40 | NUR ---
pt in cardiac arrest xiomara doe called dr. collado at bedside and cpr started with acls drugs given at 0659 dr. collado ended code nader
--- NOTE | 2018-04-30 06:58 | NUR ---
PAGED DR. BRAXTON, UPDATED HIM OF PATIENT'S PRESENT MEDICAL CONDITION AND AT PRESENT TIME WE ARE IN THE MIDDLE OF RESUSCITATING THE PATIENT.
--- NOTE | 2018-04-30 06:59 | NUR ---
DR. GLASGOW AT THE BEDSIDE, AFTER CODING FOR LAST FEW MINUTES, DR. GLASGOW PRONOUNCED PT AT [phone].
[2018-04-30] MEDS ORDERED: NOREPINEPHRINE 4 MG in DEXTROSE 5% 250 ML IV PRN ×2 (07:05→07:10)
--- NOTE | 2018-04-30 07:15 | NUR ---
CALLED [facility], THE BOTH PARTIES WILL CALL US BACK IN AN HOUR OR SO.
--- NOTE | 2018-04-30 08:05 | NUR ---
FAMILY AT THE BEDSIDE.
--- NOTE | 2018-04-30 08:09 | NUR ---
REPORT GIVEN TO YOBANI PETERSEN SINCE [facility] AND [facility] WILL BE CALLING US BACK.
[2018-04-30] MEDS ORDERED: PANTOPRAZOLE 40 MG TABEC PO SCH (09:00)
--- NOTE | 2018-04-30 09:00 | NUR ---
PT'S BELONGINGS TAKEN HOME BY THE FAMILY (AIDEE MCCONNELL, AUNT)
--- NOTE | 2018-04-30 13:35 | NUR ---
KECIA GARCIA FROM CLIENT SERVICE ADMINISTRATOR'S OFFICE CALLED. REPORT GIVEN. PT. IS NOT A CLIENT SERVICE ADMINISTRATOR'S CASE. # [id number].
--- NOTE | 2018-04-30 14:38 | NUR ---
CHE GARCIA FROM [facility] NOTIFIED THAT PT. HAS BEEN RELEASED BY THE [facility] MACHINE OPERATOR.
--- NOTE | 2018-04-30 14:50 | NUR ---
[facility]. INFORMED THAT PT. IS READY TO BE REMOVED.
--- NOTE | 2018-04-30 15:00 | NUR ---
POST MORTEM CARE DONE.
--- NOTE | 2018-04-30 16:51 | NUR ---
PT. TAKEN BY [facility].
== END 2018-04-30 06:59 | disposition expired | DRG 371 ==
LOC: MED 09:13 → OBSVTOIN 13:31 → INTOOBSV 13:31 → MTU 13:31 → OBSVTOIN 04-27 14:31 → MTU 04-29 20:51 → MIC 04-30 05:40
PROVIDERS: ADMIT Hospitalist; ATTEND Hospitalist
PROC: 5A12012 Performance of Cardiac Output, Single, Manual (ICD-10-PCS; principal; 2018-04-30)
DX: A04.72 Enterocolitis due to Clostridium difficile, not specified as recurrent (principal); N17.0 Acute kidney failure with tubular necrosis; E87.1 Hypo-osmolality and hyponatremia; M54.40 Lumbago with sciatica, unspecified side; M51.36 Other intervertebral disc degeneration, lumbar region; E83.42 Hypomagnesemia; F10.10 Alcohol abuse, uncomplicated; E86.1 Hypovolemia; I46.9 Cardiac arrest, cause unspecified; F17.210 Nicotine dependence, cigarettes, uncomplicated; G62.9 Polyneuropathy, unspecified; I95.9 Hypotension, unspecified; G89.29 Other chronic pain; Y90.9 Presence of alcohol in blood, level not specified; I12.9 Hypertensive chronic kidney disease with stage 1 through stage 4 chronic kidney disease, or unspecified chronic kidney disease; K21.9 Gastro-esophageal reflux disease without esophagitis; M81.0 Age-related osteoporosis without current pathological fracture; N18.9 Chronic kidney disease, unspecified; Z90.710 Acquired absence of both cervix and uterus; Z90.49 Acquired absence of other specified parts of digestive tract
CPT/HCPCS: 96372; 99285; G0378; 31500; 36415; 71045; 72131; 80048; 82272; 82948; 83735; 85025; 87070; 87081; 92950; 94002; 97110; 97116; 97530; J1650; J1885; J2060; J2270; J2405; J3475; J3490; J7030; J7060; Q0092; Q0162